=== PATIENT | female | born 1960 | race Caucasian/White ===

== ENCOUNTER 2024-11-29 14:21 | Emergency (ER) | payer OTHER, SELFPAY ==
[2024-11-29 14:23] VITALS: BP 130/79
[2024-11-29 14:45] LABS: % Basophils 0.5 % (0-2); % Eosinophils 0.5 % (0-6); % Immature Granulocytes 0.2 % (0-0.5); % Lymphocytes 28.2 % (20.5-51.1); % Monocytes 4.3 % (1.7-9.3); % Neutrophils 66.3 % (42.2-75.2); Absolute Lymphocytes 2.3 10^3/uL (1.2-3.4); Absolute Monocytes 0.4 10^3/uL (0.1-0.6); Absolute Neutrophils 5.4 10^3/uL (1.4-6.5); Hematocrit 43.4 % (37.0-47.0); Hemoglobin 14.7 g/dL (12.0-16.0); Mean Corp Hgb Conc. 33.9 g/dL (33.0-37.0); Mean Corpuscular Hgb 31.1 pg (27.0-31.0); Mean Corpuscular Volume 91.9 fL (81.0-99.0); Mean Platelet Volume 10.5 fL (7.4-10.4); Nucleated Red Blood Cells % 0 %; Platelet Count 207 10^3/uL (130-400); Red Blood Cell Count 4.72 10^6/uL (4.20-5.40); Red Cell Dist. Width 14.2 % (11.5-14.5); White Blood Cell Count 8.1 10^3/uL (4.8-10.8)
[2024-11-29 15:10] LABS: ALT (SGPT) 18 U/L (0-35); AST (SGOT) 20 U/L (14-36); Albumin 4.8 g/dl (3.5-5.0); Alkaline Phosphatase 40 U/L (38-126); Blood Urea Nitrogen 16 mg/dl (7-17); Calcium 9.8 mg/dl (8.4-10.2); Carbon Dioxide 29 mmol/L (22-30); Chloride 102 mmol/L (98-107); Glucose 195 mg/dl (70-99); Potassium 4.6 mmol/L (3.5-5.1); Sodium 137 mmol/L (135-145); Total Bilirubin 0.7 mg/dl (0.2-1.3); Total Protein 7.4 g/dl (6.3-8.2); eGFR > 60.00
[2024-11-29 15:28] LABS: Urine Albumin 2+ (Neg - Trace); Urine Bilirubin Negative (Negative); Urine Character Cloudy (Clear); Urine Color Yellow; Urine Glucose Negative (Negative); Urine Ketone Negative (Negative); Urine Leukocyte 3+ (Negative); Urine Nitrite Positive (Negative); Urine Occult Blood 2+ (Negative); Urine Specific Gravity 1.015 (<1.030); Urine Urobilinogen Negative (Neg - 1+); Urine pH 6.5 (5.0-9.0)
[2024-11-29 15:38] LABS: Urine Squamous Cell 16-20 /LPF (Few)
[2024-11-29 15:39] LABS: Urine Bacteria Many (Negative); Urine White Cell >100 /HPF (0-5)
--- NOTE | 2024-11-29 17:11 | ED.GENMED ---
History of Present Illness
General
Chief Complaint: Failure to Thrive
Source: patient
Exam Limitations: none
Time Seen by Provider: 11/29/24 16:41
History of Present Illness
History of Present Illness:
64yoF with a history of depression and tobacco use presenting for evaluation of right leg weakness. Patient has been experiencing tingling in her bilateral feet and right hand for the past several months. She reports right leg weakness as well.
Over the past 24 hours, the right leg weakness seems to be worsening and her right leg feels 'tight.' Of note, she started to experience pain in her right buttock region last night, particularly if she lays on the right side. She also reports poor
appetite for several weeks and has lost about 5 pounds. She has not seen her PCP because she was hoping that her symptoms would go away.
Past History
Past History
ED Past Medical History: None
ED Past Surgical History: Gynecological (Tubal ligation) and Other (Breast augmentation)
Social History
Tobacco: Non-smoker
Phy Exam
General Physical Exam
General Presentation: well appearing and no apparent distress
General Skin: warm and dry
General Habitus: normal
General Mental: alert
ENT Exam
ENT Exam: normocephalic
Cardiovascular Exam
Cardiovascular Exam: regular rate/rhythm and normal peripheral pulses (2+ DP pulses bilaterally)
Pulmonary Exam
Pulmonary Exam: lungs clear, no respiratory distress, no rales, no crackles, no rhonchi and no wheezing
Neurological Exam
Neurological Exam: alert and other (4/5 strength with R hip flexion and dorsiflexion. Sensation intact. 2+ patellar reflexes bilaterally. 5/5 strength in all other extremities.)
Josselyn Coma Scale
Eye Opening: Spontaneous
Verbal Response: Oriented
Motor Response: Obeys Commands
GCS Total Score: 15
Skin Exam
Skin Exam: normal color and warm/dry
Psychiatric Exam
Psychiatric Exam: normal mood/affect
Course
Orders/Labs/Results
Orders:
Orders
11/29/24 14:39
CMP [Comprehensive Metabolic Panel] Urgent
Complete Blood Count/With Diff Urgent
Glycohemoglobin (HgbA1c) Urgent
TSH Urgent
Comment: ADD ON
11/29/24 15:18
Urinalysis Reflex To Culture Urgent
Date Specimen was Collected: 11/29/24
Time Specimen was Collected: 14:27
Urine Microscopic Reflex Cult Urgent
Urine Culture Urgent
SONDRA Source: U
Specimen Description:
Date Specimen was Collected: 11/29/24
Time Specimen was Collected: 14:27
11/29/24 17:07
Add On- LAB Urgent
Tests Added?: TSH, A1c
CT Head W/o Iv Contrast Urgent
Comment:
Reason For Exam: R sided weakness
CT Lumbar Spine W/o Iv Contras Urgent
Comment:
Reason For Exam: R leg weakness
Venous Doppler Lwr Ext Rt [US Periph Venous LOWER Ext RT] Urgent
Comment:
Reason For Exam: R leg tightness
11/29/24 19:09
Cefdinir [Omnicef] 300 mg PO NOW STA
METFORMIN HCl [Glucophage] 500 mg PO NOW STA
Abnormal Lab Results
11/29/24 11/29/24
14:39 15:18
MCH 31.1 H pg
(27.0-31.0)
MPV 10.5 H fL
(7.4-10.4)
Glucose 195 H mg/dl
(70-99)
Hemoglobin A1c 6.2 H %
(4.0-5.6)
Ur Occult Blood Reflex 2+ A
(Negative)
Urine Nitrite (Reflex) Positive A
(Negative)
Leukocyte Esterase Rfl 3+ A
(Negative)
Urine RBC 3-6 A /HPF
(0-2)
Urine WBC (Reflex) >100 A /HPF
(0-5)
Urine Bacteria (Reflex) Many A
(Negative)
Urine Albumin (Reflex) 2+ A
(Neg - Trace)
11/29/24 14:39
11/29/24 14:39
Vital Signs
Initial and Last Documented VS:
Initial Vital Signs
Temp Pulse Resp BP Pulse Ox
98.1 F 99 16 130/79 95
11/29/24 14:23 11/29/24 14:23 11/29/24 14:23 11/29/24 14:23 11/29/24 14:23
Last Documented Vital Signs
Temp Pulse Resp BP Pulse Ox
98.1 F 89 18 132/78 98
11/29/24 14:23 11/29/24 19:34 11/29/24 19:34 11/29/24 19:34 11/29/24 19:34
MDM/Problems Addressed
Differential Diagnosis Includes:
64yoF here with tingling in both feet/R hand x several months. Also c/o R leg weakness which seems to be worsening since yesterday with new pain in her buttock. VSS. She is well appearing in no distress. 4/5 strength noted in R leg. Patellar
reflexes and DP pulses intact bilaterally. Differential diagnosis includes but is not limited to: peripheral neuropathy, sciatica, lumbar radiculopathy, MS, CVA
Initial ED plan: Labs obtained in triage. Glucose is 195. No prior history of diabetes, HbA1c added. UA with >100 WBC and many bacteria consistent with UTI. Will check TSH, CT head, CT lumbar spine, and venous duplex.
*Critical Care Note
Total Time (30-74mins, 75-104mins- exclusive of procedures): Not Applicable
Update Note
Update Note:
CT head negative for acute findings/evidence of prior infarct. CT lumbar spine shows degenerative changes. Venous duplex negative for DVT. Unclear etiology of symptoms, possibly peripheral neuropathy. Suspect underlying diabetes given glucose of
195. HbA1c pending. She was started on metformin and a course of cefdinir to cover for UTI. She was instructed to call her PCP tomorrow for close f/u. ED return precautions reviewed. Patient discharged in stable condition.
ED Attending Note
-
Portions of this chart may have been created with voice recognition software.� Occasional wrong word or��sound alike� substitutions may have occurred due to the inherent limitations of voice recognition software.
Discharge Plan
Departure
Patient Disposition: Home (Routine Discharge)
Date of Disposition: 11/29/24
Time of Disposition: 19:08
Patient with high blood pressure during this ER visit?: No
Discharge Problem:
Tingling of both feet, Hyperglycemia, Right leg weakness, Urinary tract infection
Instructions: Peripheral neuropathy
Prescriptions:
New
metformin 500 mg tablet
500 mg PO BID Qty: 60 0RF
cefdinir 300 mg capsule
300 mg PO BID Qty: 13 0RF
Referrals:
Haydee Goss PA-C [Family Provider, Family Practice]
Activity Restrictions/Additional Instructions:
Take metformin and antibiotics as prescribed.
Please call tomorrow to schedule a follow-up with your family doctor. Return to the ER with any new or worsening symptoms.
Interventions
Interventions:
*Risk Screen - Suicide Last Done: 11/29/24 14:23
*General Assessment Last Done: 11/29/24 16:35
*Neglect/Abuse Screening Last Done: 11/29/24 14:23
*ED- Fall Risk Assessment Last Done: 11/29/24 16:35
*ED COVID-19 Vaccine History Last Done: 11/29/24 19:34
*Nursing Disposition Last Done: 11/29/24 19:34
Discharge Date and Time
Discharge Date/Time: 11/29/24 19:35
Print Language: [place]
[2024-11-29] MEDS: GLUCOPHAGE 500 MG PO (19:28)
[2024-11-29] MEDS: OMNICEF 300 MG PO (19:28)
[2024-11-29 19:34] VITALS: BP 132/78
[2024-11-30 09:53] LABS: Glycohemoglobin (HgbA1c) 6.2 % (4.0-5.6)
== END 2024-11-29 19:35 | disposition home or self-care (01) ==
LOC: EMR 14:21
PROVIDERS: Emergency Medicine; EMERGENCY PHYSICIAN Emergency Medicine; FAMILY PHYSICIAN Physician Assistant Medical
DX: N39.0 Urinary tract infection, site not specified (principal); R73.9 Hyperglycemia, unspecified; R20.2 Paresthesia of skin; R53.1 Weakness; M79.604 Pain in right leg; Z72.0 Tobacco use
CPT/HCPCS: 99284; 70450; 72131; 80053; 81003; 81015; 83036; 84443; 85025; 87086; 93971

== ENCOUNTER → 2024-12-06 17:43 | Outpatient (REF) | payer OTHER, SELFPAY | LOC: RAD 17:43 | PROVIDERS: ATTENDING PHYSICIAN Physician Assistant Medical | DX: R20.0 Anesthesia of skin (principal) | CPT/HCPCS: 72050 ==

== ENCOUNTER → 2024-12-21 20:03 | Outpatient (REF) | payer OTHER, SELFPAY | LOC: MRI 3T 20:03 | PROVIDERS: ATTENDING PHYSICIAN Physician Assistant Medical | DX: M51.26 Other intervertebral disc displacement, lumbar region (principal); M51.369 Other intervertebral disc degeneration, lumbar region without mention of lumbar back pain or lower extremity pain; R20.0 Anesthesia of skin; M47.22 Other spondylosis with radiculopathy, cervical region; M54.10 Radiculopathy, site unspecified | CPT/HCPCS: 72141; 72148 ==

== ENCOUNTER → 2025-05-07 13:24 | Outpatient (REF) | payer OTHER, SELFPAY | LOC: MRI 3T 13:24 | PROVIDERS: ATTENDING PHYSICIAN Specialist; FAMILY PHYSICIAN Physician Assistant Medical | DX: R26.81 Unsteadiness on feet (principal) | CPT/HCPCS: 70553; A9575 ==

== ENCOUNTER → 2025-05-23 12:26 | Outpatient (REF) | payer OTHER, SELFPAY ==
[2025-05-23 13:02] LABS: Hematocrit 45.7 % (37.0-47.0); Hemoglobin 14.5 g/dL (12.0-16.0); Mean Corp Hgb Conc. 31.7 g/dL (33.0-37.0); Mean Corpuscular Volume 93.3 fL (81.0-99.0); Platelet Count 200 10^3/uL (130-400); Red Cell Dist. Width 14.1 % (11.5-14.5)
[2025-05-23 13:06] LABS: INR 0.95; PT 13.2 Sec (11.4-14.6)
[2025-05-23 13:10] VITALS: BP 132/85; BP_SYST 87
[2025-05-23 15:00] VITALS: BP 138/82
[2025-05-23 15:25] LABS: CSF Color Colorless; White Cell Count/CSF 0 mm^3 (0-5)
[2025-05-23 15:26] LABS: Red Cell Count/CSF 461 mm^3
[2025-05-23 15:38] LABS: CSF Color Colorless; CSF Tube # Clarity Clear; White Blood Cell Count/CSF 1 mm^3 (0-5)
[2025-05-23 15:39] LABS: Red Cell Count/CSF 33 mm^3
== END ==
LOC: RADI 12:26
PROVIDERS: ATTENDING PHYSICIAN Specialist; FAMILY PHYSICIAN Physician Assistant
DX: R26.2 Difficulty in walking, not elsewhere classified (principal); R20.0 Anesthesia of skin; D68.8 Other specified coagulation defects
CPT/HCPCS: 36415; 62328; 82040; 82042; 82164; 82784; 82945; 83873; 83916; 84157; 85027; 85610; 86592; 87476; 89051